=== PATIENT | male | born 1970 | race Caucasian/White ===

== ENCOUNTER 2019-04-26 11:44 | Emergency (ER) | payer OTHER ==
[~2019-04-26] VITALS: Ht 177.8 cm; Wt 74.8 kg
[2019-04-26 12:05] VITALS: BP 131/85
--- NOTE | 2019-04-26 12:09 | Emergency Room Report ---
History of Present Illness General Chief Complaint: Dizziness Source: Patient Present Illness HPI 49-year-old male presents to the emergency department complaining of dizziness since yesterday. Patient reports acute onset upon awakening yesterday with vertigo symptoms. Patient states he had several episodes throughout the day and that one caused him to vomit. Patient states that he googled his symptoms and assume that he had BPPV and watch some videos on how to do Mita maneuver. Patient states that he perform that maneuver on himself at least 4 times. Patient states for the most part his symptoms have resolved however he still feels somewhat off balance/dizzy upon getting up too quickly. Patient denies actual vertigo today. He also reports that he is concerned that he may be dehydrated because he is been sweating a lot outside due to the heat and not drinking as much water. Patient denies significant Past medical history or stroke risk factors. Patient does not smoke. He denies recent URI or ear symptoms. Denies fevers or chills, neck pain or stiffness. Patient denies paresthesias, weakness in the extremities, slurred speech or any other neurological symptoms. No other aggravating or relieving factors at this time. Allergies: Coded Allergies: No Known Allergies (Unverified , 04/26/19) Patient History Past Medical History: see triage record Past Surgical History: none Pertinent Family History: none Reviewed Nursing Documentation: PMH: Agreed; PSxH: Agreed Nursing Documentation-PMH Past Medical History: No Stated History Review of Systems All Other Systems: negative except mentioned in HPI Physical Exam Vital Signs Date Time Temp Pulse Resp B/P (MAP) Pulse Ox O2 Delivery O2 Flow Rate FiO2 04/26/19 11:53 98.1 76 18 131/85 (100) 97 Room Air Sp02 EP Interpretation: reviewed, normal General Appearance: no apparent distress, alert, GCS 15, non-toxic Head: normocephalic, atraumatic Eyes: bilateral eye normal inspection, bilateral eye PERRL ENT: hearing grossly normal, normal voice Neck: full range of motion, no meningismus, no bony tend Respiratory: lungs clear, normal breath sounds, speaking full sentences Cardiovascular #1: regular rate, rhythm Musculoskeletal: back normal, normal range of motion, non-tender, other - Pt. initially ambulated with some mild pausing and re-balancing without assistance.. 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 Negative rhomberg, grossly normal Psychiatric: judgement/insight normal Lymphatic: no adenopathy Medical Decision Making PA Attestation Dr. Hogan is my supervising Physician whom patient management has been discussed with. Diagnostic Impression: Primary Impression: Episodic peripheral vertigo ER Course 49-year-old male presents to the emergency department complaining of dizziness since yesterday. Patient reports acute onset upon awakening yesterday with vertigo symptoms. Patient states he had several episodes throughout the day and that one caused him to vomit. Patient states that he googled his symptoms and assume that he had BPPV and watch some videos on how to do Mita maneuver. Patient states that he perform that maneuver on himself at least 4 times. Patient states for the most part his symptoms have resolved however he still feels somewhat off balance/dizzy upon getting up too quickly. Patient denies actual vertigo today. He also reports that he is concerned that he may be dehydrated because he is been sweating a lot outside due to the heat and not drinking as much water. Patient denies significant Past medical history or stroke risk factors. Patient does not smoke. He denies recent URI or ear symptoms. Denies fevers or chills, neck pain or stiffness. Patient denies paresthesias, weakness in the extremities, slurred speech or any other neurological symptoms. No other aggravating or relieving factors at this time. Ddx considered but are not limited to Mnire's, BPPV, labrinitis, cerebellar stroke, hypovolemia, cardiac cause. Vital signs: are WNL, pt. is afebrile H&PE are most consistent with :[ ] No focal deficit to indicate TIA or CVA. No vertical nystagmus. No Ataxia. Because of lack of focality and red flags, I see no need for CT scan. ORDERS: -BMP: WNL - CBC:WNL -EK NSR -Ortho-Static VS: Negative for orthostatic hypotension ED INTERVENTIONS: - 1 Liter NS Bolus -50mg Meclizine Upon reassessment patient states that he is feeling much better he is able to ambulate without any assistance no evidence of imbalance he can complete heel-to -toe without becoming off balance. Turning his head from side to side does not elicit his symptoms. -I do not identify an emergent condition at this time. With current presentation , pt. is stable for close outpatient follow up and conservative treatment. D/ w pt. to return promptly to ED with worsening or new symptoms.- Pt. verbalizes' understanding and agreement with proposed treatment plan. DISCHARGE: At this time pt. is stable for d/c to home. Will provide printed patient care instructions, and any necessary prescriptions. Care plan and follow up instructions have been discussed with the patient prior to discharge. Labs Test 04/26/19 13:00 White Blood Count 7.1 K/UL (4.8-10.8) Red Blood Count 5.09 M/UL (4.70-6.10) Hemoglobin 15.5 G/DL (14.2-18.0) Hematocrit 45.6 % (42.0-52.0) Mean Corpuscular Volume 90 FL (80-99) Mean Corpuscular Hemoglobin 30.4 PG (27.0-31.0) Mean Corpuscular Hemoglobin Concent 33.9 G/DL (32.0-36.0) Red Cell Distribution Width 11.3 % (11.6-14.8) Platelet Count 241 K/UL (150-450) Mean Platelet Volume 6.8 FL (6.5-10.1) Neutrophils (%) (Auto) 64.1 % (45.0-75.0) Lymphocytes (%) (Auto) 24.1 % (20.0-45.0) Monocytes (%) (Auto) 7.0 % (1.0-10.0) Eosinophils (%) (Auto) 3.2 % (0.0-3.0) Basophils (%) (Auto) 1.5 % (0.0-2.0) Sodium Level 145 MMOL/L (136-145) Potassium Level 4.1 MMOL/L (3.5-5.1) Chloride Level 106 MMOL/L (98-107) Carbon Dioxide Level 31 MMOL/L (21-32) Anion Gap 8 mmol/L (5-15) Blood Urea Nitrogen 11 mg/dL (7-18) Creatinine 0.9 MG/DL (0.55-1.30) Estimat Glomerular Filtration Rate > 60 mL/min (>60) Glucose Level 107 MG/DL (74-106) Calcium Level 9.7 MG/DL (8.5-10.1) EKG Diagnostic Results EP Interpretation: Dr. hogan Rate: normal - 62bpm Rhythm: NSR ST Segments: no acute changes ASA given to the pt in ED: No PA Scribe Text This Interpretation was scribed by RACHNA Dueñas. Last Vital Signs Date Time Temp Pulse Resp B/P (MAP) Pulse Ox O2 Delivery O2 Flow Rate FiO2 04/26/19 12:05 76 18 Room Air 04/26/19 12:05 98.1 131/85 97 Status: improved Disposition: AGAINST MEDICAL ADVICE Condition: Stable Scripts Meclizine Hcl* (VERTICALM*) 25 Mg Tablet 25-50 MG ORAL THREE TIMES A DAY for 5 Days, #18 TAB Prov: Anju Dueñas 04/26/19 Patient Instructions: Benign Positional Vertigo, Vertigo Additional Instructions: Take medications as directed. Do not drink alcohol, drive, or operate heavy machinery while taking Meclizine/Antivert as this may cause drowsiness. Follow up with a Primary Care Provider in 3-5 days, even if your symptoms have resolved. Return sooner to ED if new symptoms occur, or current symptoms become worse. - Please note that this Emergency Department Report was dictated using [employer]iftia[employer] conditioning mechanic technology software, occasionally this can lead to erroneous entry secondary to interpretation by the dictation equipment. Anju Dueñas Apr 26, 2019 12:09
[2019-04-26 12:18] VITALS: BP_SYST 128; BP_SYST 129; BP_DIAS 87; BP_DIAS 88
[2019-04-26 13:21] LABS: BASOPHILS % (AUTO) 1.5 % (0.0-2.0); EOSINOPHILS % (AUTO) 3.2 % (0.0-3.0); HEMATOCRIT 45.6 % (42.0-52.0); HEMOGLOBIN 15.5 G/DL (14.2-18.0); LYMPHOCYTES % (AUTO) 24.1 % (20.0-45.0); MEAN CORPUSCULAR VOLUME 90 FL (80-99); NEUTROPHILS % (AUTO) 64.1 % (45.0-75.0); PLATELET COUNT 241 K/UL (150-450); RED BLOOD COUNT 5.09 M/UL (4.70-6.10); RED CELL DISTRIBUTION WIDTH 11.3 % (11.6-14.8); WHITE BLOOD COUNT 7.1 K/UL (4.8-10.8)
[2019-04-26 13:26] LABS: ANION GAP 8 mmol/L (5-15); BLOOD UREA NITROGEN 11 mg/dL (7-18); CALCIUM 9.7 MG/DL (8.5-10.1); CARBON DIOXIDE 31 MMOL/L (21-32); CHLORIDE 106 MMOL/L (98-107); CREATININE 0.9 MG/DL (0.55-1.30); POTASSIUM 4.1 MMOL/L (3.5-5.1); SODIUM 145 MMOL/L (136-145)
[2019-04-26] MEDS ORDERED: Meclizine 25mg tab ORAL PRN (13:45)
[2019-04-26 14:18] VITALS: BP 122/80
[2019-04-26] MEDS ORDERED: VERTICALM25 MG ORAL (15:07)
[2019-04-26 15:30] VITALS: BP 119/73
--- NOTE | 2019-04-28 15:17 | Cardiology Report ---
APPROVED REPORT EKG Measurement Heart [id number] Normal sinus rhythm Minimal voltage criteria for LVH, may be normal variant Borderline ECG
== END 2019-04-26 15:30 | disposition home or self-care (01) ==
LOC: EMR 14:10
DX: H81.399 Other peripheral vertigo, unspecified ear (principal)
CPT/HCPCS: 36415; 80048; 85025; 93005; 96360; 99284

== ENCOUNTER 2020-07-10 19:43 | Inpatient (IN) | payer OTHER ==
[~2020-07-10] VITALS: Ht 177.8 cm; Wt 74.8 kg
[~2020-07-10 19:43] MED LIST: VERTICALM25 MG ORAL
[2020-07-10 20:00] VITALS: BP 144/89
[2020-07-10 20:19] LABS: BASOPHILS % (AUTO) 1.3 % (0.0-2.0); EOSINOPHILS % (AUTO) 0.7 % (0.0-3.0); HEMATOCRIT 42.2 % (42.0-52.0); HEMOGLOBIN 14.5 G/DL (14.2-18.0); LYMPHOCYTES % (AUTO) 16.5 % (20.0-45.0); MEAN CORPUSCULAR VOLUME 90 FL (80-99); MONOCYTES % (AUTO) 5.1 % (1.0-10.0); NEUTROPHILS % (AUTO) 76.5 % (45.0-75.0); PLATELET COUNT 232 K/UL (150-450); WHITE BLOOD COUNT 8.6 K/UL (4.8-10.8)
[2020-07-10 21:10] LABS: APPEARANCE,URINE CLEAR; BILIRUBIN, URINE NEGATIVE (NEGATIVE); COLOR,URINE PALE YELLOW; GLUCOSE, URINE (UA) NEGATIVE (NEGATIVE); KETONES,URINE NEGATIVE (NEGATIVE); LEUKOCYTE ESTERASE ,URINE NEGATIVE (NEGATIVE); NITRITE,URINE NEGATIVE (NEGATIVE); PH,URINE 6 (4.5-8.0); PROTEIN,URINE NEGATIVE (NEGATIVE); UROBILINOGEN,URINE NORMAL MG/DL (0.0-1.0)
[2020-07-10 21:11] LABS: ALANINE AMINOTRANSFERASE 26 U/L (12-78); ALBUMIN 4.1 G/DL (3.4-5.0); ALBUMIN/GLOBULIN RATIO 1.4 (1.0-2.7); ALKALINE PHOSPHATASE 53 U/L (46-116); ANION GAP 7 mmol/L (5-15); ASPARTATE AMINO TRANSFERASE 18 U/L (15-37); BILIRUBIN,TOTAL 0.6 MG/DL (0.2-1.0); BLOOD UREA NITROGEN 10 mg/dL (7-18); CALCIUM 8.9 MG/DL (8.5-10.1); CARBON DIOXIDE 25 MMOL/L (21-32); CHLORIDE 103 MMOL/L (98-107); POTASSIUM 3.6 MMOL/L (3.5-5.1); SODIUM 135 MMOL/L (136-145)
--- NOTE | 2020-07-10 21:49 | Emergency Room Report ---
History of Present Illness General Chief Complaint: Chest Pain Source: Patient Present Illness HPI The patient states that he has been getting intermittent chest pain almost daily. He states that the symptoms come and go. He states he also gets episodes of a very rapid heartbeat. He states that sometimes his heart will feel like he is skipping a beat. He states he has had these symptoms in the past and has been evaluated but has never seen a offshore wind turbine technician. He denies recent illness. Denies cough or congestion. His fever chills. He denies nausea or vomiting. He states that today he had an episode of chest pressure that radiated down his left arms and he became very sweaty. He states he also had several episodes of palpitations today. He denies headache or neck pain. He denies shortness of breath. He has no other complaints. Allergies: Coded Allergies: No Known Allergies (Unverified , 04/26/19) COVID-19 Screening Contact w/high risk pt: No Experienced COVID-19 symptoms?: No COVID-19 Testing performed INTERIOR ASSEMBLIES INSTALLER: No Patient History Past Medical History: none Past Surgical History: none Social History: Reports: alcohol use - Light; Denies: smoking, drug use Reviewed Nursing Documentation: PMH: Agreed; PSxH: Agreed Nursing Documentation-PMH Past Medical History: No Stated History Review of Systems All Other Systems: negative except mentioned in HPI Physical Exam Vital Signs Date Time Temp Pulse Resp B/P (MAP) Pulse Ox O2 Delivery O2 Flow Rate FiO2 07/10/20 19:56 98.1 112 24 144/89 (107) 97 Room Air Sp02 EP Interpretation: reviewed, normal General Appearance: no apparent distress, alert, GCS 15, non-toxic Head: normocephalic, atraumatic Eyes: bilateral eye normal inspection, bilateral eye PERRL ENT: hearing grossly normal, normal pharynx, no angioedema, normal voice Neck: full range of motion, supple/symm/no masses Respiratory: chest non-tender, lungs clear, normal breath sounds, no respiratory distress, no retraction, no accessory muscle use, speaking full sentences Cardiovascular #1: regular rate, rhythm, no edema Gastrointestinal: normal bowel sounds, non tender, soft, non-distended, no guarding, no rebound Rectal: deferred Musculoskeletal: back normal, normal range of motion, gait/station normal, non- tender Neurologic: alert, motor strength/tone normal, oriented x3, sensory intact, responsive, speech normal Psychiatric: judgement/insight normal, memory normal, mood/affect normal, no suicidal/homicidal ideation Skin: no rash, normal color Medical Decision Making Diagnostic Impression: Primary Impression: Chest pain Additional Impressions: Palpitations Tachycardia ER Course This patient has had stuttering chest pain and significant palpitations. The patient in the emergency department had a very variable heart rate. The patient's heart rate would range from 105 at times down into the high 60s. Possibly this patient has an inappropriate sinus tachycardia or other arrhythmia. I am also concerned about the nature of the patient's chest pain. The patient has had escalation of his chest pain and further today is chest pain involved the diaphoresis. The patient has never been evaluated by a offshore wind turbine technician and I feel that this patient needs further monitoring under observation and evaluation by a offshore wind turbine technician. The patient will be admitted for further evaluation of his chest pain to rule out acute coronary syndrome or pathologic arrhythmia. This patient was evaluated in the context of the global COVID-19 pandemic, which necessitated consideration that the patient might be at risk for infection with the [id number] virus that causes COVID-19. Institutional protocols and algorithms that pertain to the evaluation of patients at risk for COVID-19 and the state of rapid change based on information released by multiple regulatory bodies including the CDC and federal and state organizations. These policies and algorithms were followed during the patient's care in the ED. Laboratory Tests Test 07/10/20 20:03 07/10/20 20:40 White Blood Count 8.6 K/UL (4.8-10.8) Red Blood Count 4.70 M/UL (4.70-6.10) Hemoglobin 14.5 G/DL (14.2-18.0) Hematocrit 42.2 % (42.0-52.0) Mean Corpuscular Volume 90 FL (80-99) Mean Corpuscular Hemoglobin 30.8 PG (27.0-31.0) Mean Corpuscular Hemoglobin Concent 34.3 G/DL (32.0-36.0) Red Cell Distribution Width 12.0 % (11.6-14.8) Platelet Count 232 K/UL (150-450) Mean Platelet Volume 7.3 FL (6.5-10.1) Neutrophils (%) (Auto) 76.5 % (45.0-75.0) H Lymphocytes (%) (Auto) 16.5 % (20.0-45.0) L Monocytes (%) (Auto) 5.1 % (1.0-10.0) Eosinophils (%) (Auto) 0.7 % (0.0-3.0) Basophils (%) (Auto) 1.3 % (0.0-2.0) Sodium Level 135 MMOL/L (136-145) L Potassium Level 3.6 MMOL/L (3.5-5.1) Chloride Level 103 MMOL/L (98-107) Carbon Dioxide Level 25 MMOL/L (21-32) Anion Gap 7 mmol/L (5-15) Blood Urea Nitrogen 10 mg/dL (7-18) Creatinine 1.0 MG/DL (0.55-1.30) Estimated Glomerular Filtration Rate > 60 mL/min (>60) Glucose Level 129 MG/DL (74-106) H Calcium Level 8.9 MG/DL (8.5-10.1) Total Bilirubin 0.6 MG/DL (0.2-1.0) Aspartate Amino Transferase (AST) 18 U/L (15-37) Alanine Aminotransferase (ALT) 26 U/L (12-78) Alkaline Phosphatase 53 U/L (46-116) Troponin I 0.002 ng/mL (0.000-0.056) Total Protein 7.0 G/DL (6.4-8.2) Albumin 4.1 G/DL (3.4-5.0) Globulin 2.9 g/dL Albumin/Globulin Ratio 1.4 (1.0-2.7) Thyroid Stimulating Hormone (TSH) 0.912 uiU/mL (0.358-3.740) Free Thyroxine 1.21 NG/DL (0.76-1.46) Free Triiodothyronine 3.1 pg/mL (2.3-4.2) Urine Color Pale yellow Urine Appearance Clear Urine pH 6 (4.5-8.0) Urine Specific [place] 1.005 (1.005-1.035) Urine Protein Negative (NEGATIVE) Urine Glucose (UA) Negative (NEGATIVE) Urine Ketones Negative (NEGATIVE) Urine Blood Negative (NEGATIVE) Urine Nitrite Negative (NEGATIVE) Urine Bilirubin Negative (NEGATIVE) Urine Urobilinogen Normal MG/DL (0.0-1.0) Urine Leukocyte Esterase Negative (NEGATIVE) Urine Opiates Screen Negative (NEGATIVE) Urine Barbiturates Screen Negative (NEGATIVE) Phencyclidine (PCP) Screen Negative (NEGATIVE) Urine Amphetamines Screen Negative (NEGATIVE) Urine Benzodiazepines Screen Negative (NEGATIVE) Urine Cocaine Screen Negative (NEGATIVE) Urine Marijuana (THC) Screen Negative (NEGATIVE) Microbiology Date/Time Source Procedure Growth Status 07/10/20 20:03 Nasopharynx SARS-CoV-2 RdRp Gene Assay - Final Complete EKG Diagnostic Results Rate: normal Rhythm: NSR ST Segments: other - NSST findings. Rhythm Strip Diag. Results EP Interpretation: yes Rate: 90's Rhythm: NSR, no PVC's, no ectopy Chest X-Ray Diagnostic Results Chest X-Ray Diagnostic Results : Chest X-Ray Ordered: Yes # of Views/Limited/Complete: 1 View Indication: Chest Pain EP Interpretation: Yes Interpretation: no consolidation, no effusion, no pneumothorax, no acute cardiopulmonary disease Impression: No acute disease Electronically Signed by: Eryn Banuelos DO Last Vital Signs Date Time Temp Pulse Resp B/P (MAP) Pulse Ox O2 Delivery O2 Flow Rate FiO2 07/10/20 20:00 98.1 91 20 144/89 97 Room Air Disposition: ADMITTED INPATIENT Condition: Serious Referrals: Madisyn UPREFERRING (PCP) Eryn Banuelos DO Jul 10, 2020 21:49
[2020-07-10 22:00] VITALS: BP 132/89
[2020-07-10 23:30] VITALS: BP 133/85
[2020-07-11 04:00] VITALS: BP 110/74
[2020-07-11 08:00] VITALS: BP 119/76
--- NOTE | 2020-07-11 11:08 | Cardiac Electrophysiology PN ---
Subjective Subjective [id number] Objective Last 24 Hour Vital Signs Date Time Temp Pulse Resp B/P (MAP) Pulse Ox O2 Delivery O2 Flow Rate FiO2 07/11/20 08:00 64 07/11/20 08:00 97.9 74 19 119/76 (90) 96 07/11/20 04:00 66 07/11/20 04:00 98.5 66 18 110/74 (86) 96 07/10/20 23:30 98.1 69 20 133/85 (101) 98 07/10/20 23:30 72 07/10/20 23:30 98.6 78 22 143/97 99 Room Air 07/10/20 22:00 98.1 87 20 132/89 99 Room Air 07/10/20 20:00 98.1 91 20 144/89 97 Room Air 07/10/20 20:00 91 20 Room Air 07/10/20 19:56 98.1 112 24 144/89 (107) 97 Room Air Intake and Output 07/10/20 07/11/20 18:59 06:59 Intake Total 1000 ml Balance 1000 ml Intake Oral 0 ml IV Total 1000 ml # Voids 3 Laboratory Tests Test 07/10/20 20:03 07/10/20 20:40 07/11/20 09:10 White Blood Count 8.6 K/UL (4.8-10.8) Red Blood Count 4.70 M/UL (4.70-6.10) Hemoglobin 14.5 G/DL (14.2-18.0) Hematocrit 42.2 % (42.0-52.0) Mean Corpuscular Volume 90 FL (80-99) Mean Corpuscular Hemoglobin 30.8 PG (27.0-31.0) Mean Corpuscular Hemoglobin Concent 34.3 G/DL (32.0-36.0) Red Cell Distribution Width 12.0 % (11.6-14.8) Platelet Count 232 K/UL (150-450) Mean Platelet Volume 7.3 FL (6.5-10.1) Neutrophils (%) (Auto) 76.5 % (45.0-75.0) H Lymphocytes (%) (Auto) 16.5 % (20.0-45.0) L Monocytes (%) (Auto) 5.1 % (1.0-10.0) Eosinophils (%) (Auto) 0.7 % (0.0-3.0) Basophils (%) (Auto) 1.3 % (0.0-2.0) Sodium Level 135 MMOL/L (136-145) L Potassium Level 3.6 MMOL/L (3.5-5.1) Chloride Level 103 MMOL/L (98-107) Carbon Dioxide Level 25 MMOL/L (21-32) Anion Gap 7 mmol/L (5-15) Blood Urea Nitrogen 10 mg/dL (7-18) Creatinine 1.0 MG/DL (0.55-1.30) Estimat Glomerular Filtration Rate > 60 mL/min (>60) Glucose Level 129 MG/DL (74-106) H Calcium Level 8.9 MG/DL (8.5-10.1) Total Bilirubin 0.6 MG/DL (0.2-1.0) Aspartate Amino Transf (AST/SGOT) 18 U/L (15-37) Alanine Aminotransferase (ALT/SGPT) 26 U/L (12-78) Alkaline Phosphatase 53 U/L (46-116) Troponin I 0.002 ng/mL (0.000-0.056) 0.000 ng/mL (0.000-0.056) Total Protein 7.0 G/DL (6.4-8.2) Albumin 4.1 G/DL (3.4-5.0) Globulin 2.9 g/dL Albumin/Globulin Ratio 1.4 (1.0-2.7) Thyroid Stimulating Hormone (TSH) 0.912 uiU/mL (0.358-3.740) Free Thyroxine 1.21 NG/DL (0.76-1.46) Free Triiodothyronine 3.1 pg/mL (2.3-4.2) Urine Color Pale yellow Urine Appearance Clear Urine pH 6 (4.5-8.0) Urine Specific [place] 1.005 (1.005-1.035) Urine Protein Negative (NEGATIVE) Urine Glucose (UA) Negative (NEGATIVE) Urine Ketones Negative (NEGATIVE) Urine Blood Negative (NEGATIVE) Urine Nitrite Negative (NEGATIVE) Urine Bilirubin Negative (NEGATIVE) Urine Urobilinogen Normal MG/DL (0.0-1.0) Urine Leukocyte Esterase Negative (NEGATIVE) Urine Opiates Screen Negative (NEGATIVE) Urine Barbiturates Screen Negative (NEGATIVE) Phencyclidine (PCP) Screen Negative (NEGATIVE) Urine Amphetamines Screen Negative (NEGATIVE) Urine Benzodiazepines Screen Negative (NEGATIVE) Urine Cocaine Screen Negative (NEGATIVE) Urine Marijuana (THC) Screen Negative (NEGATIVE) Microbiology Date/Time Source Procedure Growth Status 07/10/20 20:03 Nasopharynx SARS-CoV-2 RdRp Gene Assay - Final Complete Imer Harley MD Jul 11, 2020 11:08
[2020-07-11] MEDS ORDERED: Lexiscan 0.4mg/5ml syringe IV PRN (11:15)
[2020-07-11 12:00] VITALS: BP 105/64
--- NOTE | 2020-07-11 12:29 | History and Physical Report ---
DATE OF ADMISSION: 07/10/2020 DATE AND TIME SEEN: 07/11/2020 at 10 a.m. CONSULTANTS: 1. Zaheer Lester MD. 2. Imer Harley MD. CHIEF COMPLAINT: Chest pain, shortness of breath. BRIEF HISTORY: This is a 50-year-old male, who lives at home, complains of two-day increased chest pain, slight short of breath, intermittent, dull. No radiation. No dizziness. No loss of consciousness. The patient came to [facility], diagnosed with above, admitted to telemetry for further care. Currently, calm in bed. No complaint. No chest pain. No shortness of breath. No nausea, vomiting, or diarrhea. PAST MEDICAL HISTORY: Nothing. PAST SURGICAL HISTORY: Bilateral hernia. ALLERGIES: Denies. MEDICATIONS: Include Tylenol, Zofran, and IV fluids. SOCIAL HISTORY: No smoking. Occasional alcohol. No intravenous drug abuse. FAMILY HISTORY: Seizure on mother's side. OBJECTIVE: GENERAL: Calm in bed, oriented x3, in no acute distress. VITAL SIGNS: Temperature 97, pulse 74, respirations 19, blood pressure 119/76. CARDIOVASCULAR: No murmur. LUNGS: Distant and clear. ABDOMEN: Positive bowel sounds. Soft, nontender, nondistended. EXTREMITIES: No cyanosis or edema. NEUROLOGIC: The patient moves all extremities, slightly weak. LABORATORY AND DIAGNOSTIC DATA: CBC is normal. BMP shows sodium 135, glucose 129. Troponin 0.002, 0.000, otherwise normal. Urinalysis is negative. Urine tox is negative. ASSESSMENT: 1. Chest pain. 2. Shortness of breath. PLAN: 1. Pain control. 2. O2 and pulmonary treatment as needed. 3. Troponin q.8 h. x3. 4. EKG in a.m. 5. Cardiology and Pulmonary followup 6. We will continue to follow this patient. Juan Paz D.O. DR: LAE JOB#: [id number] CC:
--- NOTE | 2020-07-11 15:15 | Consultation ---
DATE OF CONSULTATION: 07/11/2020 CARDIOLOGY CONSULTATION CONSULTING PHYSICIAN: Imer Harley M.D. REFERRING PHYSICIAN: Juan Paz D.O. REASON FOR CONSULTATION: Palpitation and chest pain. HISTORY OF PRESENT ILLNESS: The patient is a 50-year-old gentleman with history of palpitation and went to the emergency room about four years ago at [facility], but did not find any issues. The patient has had other similar episodes over years, but was never caught on an EKG. The patient presented to the emergency room for intermittent palpitations and rapid heartbeat that causes chest pain. The patient has had skipping beats. The patient in the ER was in sinus rhythm with blood pressure of 144/89. The patient does not have any clear documentation of supraventricular tachycardia or atrial fibrillation. REVIEW OF SYSTEMS: Negative other than what is mentioned in history of present illness. PAST MEDICAL HISTORY: As mentioned above. FAMILY HISTORY: Noncontributory. SOCIAL HISTORY: He lives at home. Does not smoke or drink alcohol. PHYSICAL EXAMINATION: VITAL SIGNS: Blood pressure , pulse 74, respirations 18, and he is afebrile. HEAD AND NECK: No JVD. LUNGS: Clear. CARDIOVASCULAR: Regular S1 and S2 with no gallop or murmur. ABDOMEN: Soft. EXTREMITIES: No pitting edema. LABORATORY AND DIAGNOSTIC DATA: His EKG shows sinus rhythm, normal electrocardiogram. The labs show white count of 8.7, hemoglobin 14.5, hematocrit 42.7, platelet count 232,000. Sodium 135, potassium 3.6, BUN of 10, creatinine of 1, and glucose of 129. Troponin negative x2. ASSESSMENT AND PLAN: Episode of palpitation resulting in chest pain. It is possible these episodes could be due to atrial fibrillation, but no documentation has been done. Current EKG shows sinus rhythm with no evidence of preexcitation. The patient already ruled out for myocardial infarction. His echocardiogram showed normal left ventricular systolic function with EF of 60%. We will schedule for the stress test and likely would need a monitor as an outpatient to try to catch these SVT episodes the patient's palpitations. Thank very much for allowing me to participate in the care of this patient. Please do not hesitate to contact me for any questions regarding my evaluation. Imer Harley M.D. DR: JAVIER JOB#: [id number] CC:
--- NOTE | 2020-07-11 15:18 | Cardiology Report ---
APPROVED REPORT EXAM: Two-dimensional and M-mode echocardiogram with Doppler and color Doppler. INDICATION Chest Pain M-Mode DIMENSIONS IVSd0.7 (0.7-1.1cm)Left Atrium (MM)3.3 (1.6-4.0cm) LVDd3.9 (3.5-5.6cm)Aortic Root3.5 (2.0-3.7cm) PWd0.9 (0.7-1.1cm)Aortic Cusp Exc.1.8 (1.5-2.0cm) IVSs1.2 cmEPSS0.5 (>1.0cm) LVDs2.5 (2.5-4.0cm) PWs1.3 cm <Conclusion> Normal left ventricular chamber size, systolic function and wall motion. Left ventricular ejection fraction estimated to be 60 %. No left ventricular hypertrophy. No evidence of pericardial effusion. All other cardiac chamber sizes are within normal limits. Focal aortic valve sclerosis with adequate cusp excursion. Thickened mitral valve leaflets with normal excursion. Mitral annulus and aortic root calcification. Normal pulmoic valve structure. Normal tricuspid valve structure. IVC at normal size with physiologic collapse. A color flow and spectral Doppler study was performed and revealed: No aortic regurgitation. No mitral regurgitation. Mitral inflow indicates normal left ventricular diastolic function. Trace tricuspid regurgitation. Tricuspid systolic velocities suggests peak right ventricular systolic pressure of 12 mmHg. Mild pulmonic regurgitation present.
--- NOTE | 2020-07-11 15:19 | Cardiology Report ---
APPROVED REPORT EKG Measurement Heart [id number] <Conclusion> Normal sinus rhythm Normal ECG
--- NOTE | 2020-07-11 15:25 | Cardiology Report ---
APPROVED REPORT EKG Measurement Heart [id number] <Conclusion> Normal sinus rhythm Possible Left atrial enlargement Borderline ECG
[2020-07-11] MEDS ORDERED: DOBUTamine 250mg/250ml Premix IV ONE (15:36)
[2020-07-11 16:00] VITALS: BP 109/59
--- NOTE | 2020-07-11 16:39 | Diagnostic Imaging Report ---
Indication: Chest pain Technique: XRAY Chest 1v Comparison: None Findings: Heart size and mediastinal contours are within normal limits for AP technique. There is no focal airspace consolidation, pneumothorax or pleural effusion. Osseous structures demonstrate no acute abnormality. Impression: No radiographic evidence of acute cardiopulmonary disease.
[2020-07-11 20:00] VITALS: BP 103/61
[2020-07-12] VITALS: BP 101/69
[2020-07-12 04:00] VITALS: BP 114/76
[2020-07-12 07:07] LABS: ANION GAP 8 mmol/L (5-15); BLOOD UREA NITROGEN 14 mg/dL (7-18); CALCIUM 8.5 MG/DL (8.5-10.1); CARBON DIOXIDE 27 MMOL/L (21-32); CHLORIDE 106 MMOL/L (98-107); CREATININE 0.9 MG/DL (0.55-1.30); POTASSIUM 3.6 MMOL/L (3.5-5.1); SODIUM 140 MMOL/L (136-145)
[2020-07-12 07:50] LABS: BASOPHILS % (AUTO) 1.4 % (0.0-2.0); EOSINOPHILS % (AUTO) 3.6 % (0.0-3.0); HEMOGLOBIN 13.9 G/DL (14.2-18.0); LYMPHOCYTES % (AUTO) 36.8 % (20.0-45.0); MEAN CORPUSCULAR VOLUME 90 FL (80-99); MONOCYTES % (AUTO) 8.5 % (1.0-10.0); NEUTROPHILS % (AUTO) 49.8 % (45.0-75.0); PLATELET COUNT 184 K/UL (150-450); RED BLOOD COUNT 4.58 M/UL (4.70-6.10); RED CELL DISTRIBUTION WIDTH 11.6 % (11.6-14.8); WHITE BLOOD COUNT 6.8 K/UL (4.8-10.8)
[2020-07-12 08:00] VITALS: BP 111/70
--- NOTE | 2020-07-12 08:15 | Consultation ---
DATE OF CONSULTATION: 07/11/2020 PULMONARY CONSULTATION HISTORY OF PRESENT ILLNESS: This is a 50-year-old male who presents with intermittent chest pain. He also reports palpitations. He was admitted overnight and has been seen this morning by Cardiology. MEDICATIONS: There is no home medication listed. PAST SURGICAL HISTORY: None. ILLNESSES: None. PREVIOUS MEDICAL HISTORY: None. REVIEW OF SYSTEMS: The patient denies any headaches, hematemesis, melena, hematochezia, 00:33 . PHYSICAL EXAMINATION: GENERAL: Reveals a 50-year-old male. VITAL SIGNS: Blood pressure 119/72 00:37 heart rate 74, respiratory rate 18, O2 saturation 98% on room air. HEENT: Unremarkable. CHEST: Clear breath sounds bilaterally. ABDOMEN: Soft. NEUROLOGIC: Nonfocal. LABORATORY DATA: Lab testing shows normal CBC and BMP. Troponin negative x2. IMPRESSION: 1. Acute coronary syndrome. 2. Hypertension. DISCUSSION: The patient is doing well from medical standpoint. Orders are in place for cardiac stress testing. Cardiology is following. No pulmonary intervention. We will follow as needed. Zaheer Lester M.D. DR: Cipriano JOB#: [id number] CC:
--- NOTE | 2020-07-12 11:32 | Pulmonology Progress Note ---
Subjective Interval Events: States he is feeling well. Seen by cardiology. Constitutional: Reports: no symptoms HEENT: Repors: no symptoms Respiratory: Reports: no symptoms Cardiovascular: Reports: no symptoms Gastrointestinal/Abdominal: Reports: no symptoms Allergies: Coded Allergies: No Known Allergies (Unverified , 04/26/19) Objective Last 24 Hour Vital Signs Date Time Temp Pulse Resp B/P (MAP) Pulse Ox O2 Delivery O2 Flow Rate FiO2 07/12/20 09:00 Room Air 07/12/20 08:00 66 07/12/20 08:00 96.3 64 20 111/70 (84) 97 07/12/20 04:00 55 07/12/20 04:00 97.9 66 16 114/76 (89) 96 07/12/20 00:00 68 07/12/20 00:00 98.1 69 16 101/69 (80) 97 07/11/20 21:00 Room Air 07/11/20 20:00 58 07/11/20 20:00 98.2 58 16 103/61 (75) 97 07/11/20 16:00 96.8 61 22 109/59 (76) 96 07/11/20 16:00 78 07/11/20 12:00 97.9 57 20 105/64 (78) 97 07/11/20 12:00 64 Intake and Output 07/11/20 07/12/20 19:00 07:00 Intake Total 140 ml 200 ml Output Total 11 ml Balance 129 ml 200 ml Intake Oral 140 ml 200 ml Output Urine Total 11 ml # Voids 3 3 General Appearance: no acute distress HEENT: normocephalic Respiratory: chest wall non-tender, lungs clear Cardiovascular: normal peripheral pulses Abdomen: normal bowel sounds Microbiology Date/Time Source Procedure Growth Status 07/10/20 20:03 Nasopharynx SARS-CoV-2 RdRp Gene Assay - Final Complete Laboratory Tests 07/12/20 06:05: White Blood Count 6.8, Red Blood Count 4.58L, Hemoglobin 13.9L, Hematocrit 41.0L , Mean Corpuscular Volume 90, Mean Corpuscular Hemoglobin 30.5, Mean Corpuscular Hemoglobin Concent 34.0, Red Cell Distribution Width 11.6, Platelet Count 184, Mean Platelet Volume 8.0, Neutrophils (%) (Auto) 49.8, Lymphocytes (%) (Auto) 36.8, Monocytes (%) (Auto) 8.5, Eosinophils (%) (Auto) 3.6H, Basophils (%) (Auto) 1.4, Sodium Level 140, Potassium Level 3.6, Chloride Level 106, Carbon Dioxide Level 27, Anion Gap 8, Blood Urea Nitrogen 14, Creatinine 0.9, Estimat Glomerular Filtration Rate > 60, Glucose Level 91, Calcium Level 8.5 Current Medications Medications (Trade) Dose Ordered Sig/Aciha Route PRN Reason Start Time Stop Time Status Last Admin Dose Admin Acetaminophen (Tylenol) 650 mg Q6H PRN ORAL For Pain 07/11/20 20:30 08/10/20 20:29 07/11/20 20:36 Regadenoson (Lexiscan) 0.4 mg ONCE PRN IV STRESS TEST 07/11/20 11:15 07/16/20 11:14 Assessment/Plan Assessment/Plan IMPRESSION: 1. Acute coronary syndrome. 2. Hypertension. DISCUSSION: The patient is doing well from medical standpoint. Orders are in place for cardiac stress testing. Await results. Cardiology is following. No pulmonary intervention. I will follow as needed. Zaheer Lester M.D. Zaheer Lester MD Jul 12, 2020 11:32
[2020-07-12 12:00] VITALS: BP 121/70
--- NOTE | 2020-07-12 12:55 | General Progress Note ---
Subjective Constitutional: Reports: weakness Allergies: Coded Allergies: No Known Allergies (Unverified , 04/26/19) All Systems: reviewed and negative except above Subjective calm in room Objective Last 24 Hour Vital Signs Date Time Temp Pulse Resp B/P (MAP) Pulse Ox O2 Delivery O2 Flow Rate FiO2 07/12/20 09:00 Room Air 07/12/20 08:00 66 07/12/20 08:00 96.3 64 20 111/70 (84) 97 07/12/20 04:00 55 07/12/20 04:00 97.9 66 16 114/76 (89) 96 07/12/20 00:00 68 07/12/20 00:00 98.1 69 16 101/69 (80) 97 07/11/20 21:00 Room Air 07/11/20 20:00 58 07/11/20 20:00 98.2 58 16 103/61 (75) 97 07/11/20 16:00 96.8 61 22 109/59 (76) 96 07/11/20 16:00 78 Intake and Output 07/11/20 07/12/20 19:00 07:00 Intake Total 140 ml 200 ml Output Total 11 ml Balance 129 ml 200 ml Intake Oral 140 ml 200 ml Output Urine Total 11 ml # Voids 3 3 Laboratory Tests 07/12/20 06:05: White Blood Count 6.8, Red Blood Count 4.58L, Hemoglobin 13.9L, Hematocrit 41.0L , Mean Corpuscular Volume 90, Mean Corpuscular Hemoglobin 30.5, Mean Corpuscular Hemoglobin Concent 34.0, Red Cell Distribution Width 11.6, Platelet Count 184, Mean Platelet Volume 8.0, Neutrophils (%) (Auto) 49.8, Lymphocytes (%) (Auto) 36.8, Monocytes (%) (Auto) 8.5, Eosinophils (%) (Auto) 3.6H, Basophils (%) (Auto) 1.4, Sodium Level 140, Potassium Level 3.6, Chloride Level 106, Carbon Dioxide Level 27, Anion Gap 8, Blood Urea Nitrogen 14, Creatinine 0.9, Estimat Glomerular Filtration Rate > 60, Glucose Level 91, Calcium Level 8.5 Height (Feet): 5 Height (Inches): 10.00 Weight (Pounds): 165 General Appearance: alert EENT: normal ENT inspection Neck: normal alignment Cardiovascular: normal peripheral pulses, normal rate, regular rhythm Respiratory/Chest: chest wall non-tender, lungs clear, normal breath sounds Abdomen: normal bowel sounds, non tender, soft Extremities: normal inspection Edema: no edema noted Arm (L), no edema noted Arm (R), no edema noted Leg (L), no edema noted Leg (R), no edema noted Pedal (L), no edema noted Pedal (R), no edema noted Generalized Neurologic: responsive, motor weakness Skin: normal pigmentation, warm/dry Assessment/Plan Problem List: (1) Palpitations ICD Codes: R00.2 - Palpitations SNOMED: 62922493 (2) Tachycardia ICD Codes: R00.0 - Tachycardia, unspecified SNOMED: 5646057 (3) Chest pain ICD Codes: R07.9 - Chest pain, unspecified SNOMED: 27298119 Status: stable, progressing Assessment/Plan: cardio pulm f/u dc if clear Juan Paz DO Jul 12, 2020 12:55
--- NOTE | 2020-07-12 16:56 | Cardiac Electrophysiology PN ---
Assessment/Plan Assessment/Plan 1. Episode of palpitation resulting in chest pain. It is possible these episodes could be due to atrial fibrillation, but no documentation has been done. Current EKG shows sinus rhythm with no evidence of preexcitation. The patient already ruled out for myocardial infarction. His echocardiogram showed normal left ventricular systolic function with EF of 60%. Stress test was nonischemic.Will likely need a monitor as an outpatient to try to catch these SVT episodes Subjective Subjective Alert in NAD. Had stress test yesterday that was nonischemic Objective Last 24 Hour Vital Signs Date Time Temp Pulse Resp B/P (MAP) Pulse Ox O2 Delivery O2 Flow Rate FiO2 07/12/20 12:00 97.5 69 18 121/70 (87) 98 07/12/20 12:00 57 07/12/20 09:00 Room Air 07/12/20 08:00 66 07/12/20 08:00 96.3 64 20 111/70 (84) 97 07/12/20 04:00 55 07/12/20 04:00 97.9 66 16 114/76 (89) 96 07/12/20 00:00 68 07/12/20 00:00 98.1 69 16 101/69 (80) 97 07/11/20 21:00 Room Air 07/11/20 20:00 58 07/11/20 20:00 98.2 58 16 103/61 (75) 97 Intake and Output 07/11/20 07/12/20 19:00 07:00 Intake Total 140 ml 200 ml Output Total 11 ml Balance 129 ml 200 ml Intake Oral 140 ml 200 ml Output Urine Total 11 ml # Voids 3 3 Laboratory Tests Test 07/12/20 06:05 White Blood Count 6.8 K/UL (4.8-10.8) Red Blood Count 4.58 M/UL (4.70-6.10) L Hemoglobin 13.9 G/DL (14.2-18.0) L Hematocrit 41.0 % (42.0-52.0) L Mean Corpuscular Volume 90 FL (80-99) Mean Corpuscular Hemoglobin 30.5 PG (27.0-31.0) Mean Corpuscular Hemoglobin Concent 34.0 G/DL (32.0-36.0) Red Cell Distribution Width 11.6 % (11.6-14.8) Platelet Count 184 K/UL (150-450) Mean Platelet Volume 8.0 FL (6.5-10.1) Neutrophils (%) (Auto) 49.8 % (45.0-75.0) Lymphocytes (%) (Auto) 36.8 % (20.0-45.0) Monocytes (%) (Auto) 8.5 % (1.0-10.0) Eosinophils (%) (Auto) 3.6 % (0.0-3.0) H Basophils (%) (Auto) 1.4 % (0.0-2.0) Sodium Level 140 MMOL/L (136-145) Potassium Level 3.6 MMOL/L (3.5-5.1) Chloride Level 106 MMOL/L (98-107) Carbon Dioxide Level 27 MMOL/L (21-32) Anion Gap 8 mmol/L (5-15) Blood Urea Nitrogen 14 mg/dL (7-18) Creatinine 0.9 MG/DL (0.55-1.30) Estimat Glomerular Filtration Rate > 60 mL/min (>60) Glucose Level 91 MG/DL (74-106) Calcium Level 8.5 MG/DL (8.5-10.1) Microbiology Date/Time Source Procedure Growth Status 07/10/20 20:03 Nasopharynx SARS-CoV-2 RdRp Gene Assay - Final Complete Objective HEAD AND NECK: No JVD. LUNGS: Clear. CARDIOVASCULAR: Regular S1 and S2 with no gallop or murmur. ABDOMEN: Soft. EXTREMITIES: No pitting edema. Imer Harley MD Jul 12, 2020 16:56
--- NOTE | 2020-07-16 12:35 | Discharge Summary ---
Discharge Summary Discharge Summary _ DATE OF ADMISSION: 07/10/2020 DATE OF DISCHARGE: 07/12/2020 DISCHARGED BY: Dr. Paz REASON FOR ADMISSION: 50 years old male with no significant past medical history, presented with intermittent chest pain on a nearly daily basis. Patient also reported episode of very rapid heartbeat. He felt like his heart skipped a beat. Patient had similar symptoms in the past , but never seen a system support specialist. He denied cough and congestion. No fever or chills. No shortness of breath. No nausea or vomiting. Earlier that day he had episode of chest pressure, that radiated down his left arm , and he became very sweaty. He also reported few episodes of palpitations. He denied headache or neck pain. Upon evaluation patient was tachycardic with heart rate 112, tachypneic with respiratory rate 24 ; blood pressure was 144/89 , and pulse oximetry was stable on room air. Laboratory work-up revealed no leukocytosis , stable hemoglobin , hematocrit and platelet count. Stable electrolytes and renal parameters. Glucose 129. Troponin negative TSH within normal limits Urinalysis revealed no evidence of urinary tract infection . EKG revealed tachycardia , no acute ischemic changes . Rapid COVID-19 was negative. Chest x-ray revealed no evidence of acute cardiopulmonary pathology. In emergency department patient received fluids and admitted to monitored floor for further management. CONSULTANTS: system support specialist Dr. Ibanez pulmonary Dr. Lester [facility]: p Patient admitted to telemetry floor . [employer] Ray Developing Machine Operator and acid retort operator closely followed. Echocardiogram demonstrated preserved ejection fraction of 60% ; no evidence of wall motion abnormalities. Serial troponin were negative . EKG revealed no acute ischemic changes . Patient was ruled out for acute myocardial infarction c. Complete thyroid function panel was stable. No evidence of arrhythmia , no preexcitation on ECG. Patient had a stress test which was nonischemic. X [employer] Developing Machine Operator recommended outpatient monitor with a Zio patch to try to catch any SVT episode. Pulse oximetry remained stable on room air. Heart rate was stable. Patient was stable for discharge home. FINAL DIAGNOSES: Episode of palpitations, resulting in chest pain Possible acute coronary syndrome Hypertension DISCHARGE MEDICATIONS: See Medication Reconciliation list. DISCHARGE INSTRUCTIONS: Patient was discharged home Follow-up with a primary care provider. Recommended outpatient monitoring with a Zio patch in attempt to catch if any SVT episode. I have been assigned to dictate discharge summary for this account. I was not involved in the patient's management. Lina Mercedes NP Jul 16, 2020 12:35
== END 2020-07-12 13:50 | disposition home or self-care (01) | DRG 198 ==
LOC: EMR 21:06 → 2E 22:20 → OBSVTOIN 22:20 → EDBEDREQ 22:52
DX: I24.9 Acute ischemic heart disease, unspecified (principal); R00.2 Palpitations; I10 Essential (primary) hypertension; R00.0 Tachycardia, unspecified
CPT/HCPCS: 36415; 71045; 80048; 80053; 80307; 81003; 84439; 84443; 84481; 84484; 85025; 93005; 93017; 93306; 96360; 99285; J7030; U0002